=== PATIENT | female | born 1970 | race Caucasian/White ===

== ENCOUNTER 2017-08-07 22:35 | Emergency (ER) | payer SELFPAY ==
[2017-08-08 00:36] LABS: BASOPHIL % 1.4 % (0-2); PLATELET COUNT 385 x10^3mcL (130-400); RED CELL DISTRIBUTION WIDTH 12.2 % (11.5-14.5)
[2017-08-08 00:47] LABS: CALCIUM 9.2 mg/dL (8.5-10.1); CARBON DIOXIDE 18.5 mmol/L (21-32); CHLORIDE SERUM 106 mmol/L (98-107); CREATININE SERUM 0.8 mg/dL (0.6-1.0); GFR1 > 60 mL/min; GLUCOSE SERUM 102 mg/dL (74-106); POTASSIUM SERUM 3.5 mmol/L (3.5-5.1); SODIUM SERUM 141 mmol/L (136-145)
[2017-08-08 01:29] VITALS: BP 120/82
== END 2017-08-08 01:29 | disposition home or self-care (01) ==
LOC: ED 22:35
PROVIDERS: Emergency Medicine
DX: R51 Headache (principal); R20.2 Paresthesia of skin; M79.1 Myalgia
CPT/HCPCS: 36415; J1885; Q0092; Q0162

== ENCOUNTER 2019-09-16 11:27 | Emergency (ER) | payer MEDICAID ==
[~2019-09-16] VITALS: Ht 160 cm; Wt 64.9 kg
[2019-09-16 11:40] VITALS: BP 99/66; Ht 160 cm; Wt 64.9 kg
[2019-09-16 12:20] LABS: CALCIUM 9.1 mg/dL (8.5-10.1); CARBON DIOXIDE 25.6 mmol/L (21-32); CHLORIDE SERUM 103 mmol/L (98-107); GFR1 > 60 mL/min; GLUCOSE SERUM 129 mg/dL (74-106); POTASSIUM SERUM 3.9 mmol/L (3.5-5.1); SODIUM SERUM 138 mmol/L (136-145)
[2019-09-16 12:25] LABS: ALKALINE PHOSPHATASE 113 U/L (46-116); ALT/SGPT 47 U/L (14-59); AST/SGOT 27 U/L (15-37); BILIRUBIN TOTAL 0.6 mg/dL (0.20-1.00); TOTAL PROTEIN, SERUM 7.5 g/dL (6.4-8.2)
[2019-09-16 12:28] LABS: ALBUMIN 3.2 g/dL (3.4-5.0)
[2019-09-16 12:34] LABS: PLATELET COUNT 292 x10^3mcL (130-400); RED CELL DISTRIBUTION WIDTH 13.1 % (11.5-14.5)
[2019-09-16 13:29] LABS: BAND NEUTROPHIL 20 % (0-10); BASOPHIL 0 % (0-2); MONOCYTE 1 % (0-7); SEGMENTED NEUTROPHILS 76 % (37-75)
[2019-09-16 13:30] LABS: PLATELET MORPHOLOGY PLATELETS NORMAL; rbc morphology (normal/abnorm) NORMAL (NORMAL)
== END 2019-09-16 15:17 | disposition home or self-care (01) ==
LOC: ED 11:27
PROVIDERS: Emergency Medicine
DX: M54.2 Cervicalgia (principal); R51 Headache; R11.0 Nausea; R50.9 Fever, unspecified; R30.0 Dysuria; M25.512 Pain in left shoulder; M25.531 Pain in right wrist; R20.0 Anesthesia of skin; E78.00 Pure hypercholesterolemia, unspecified
CPT/HCPCS: 36415; J1885